=== PATIENT | male | born 2000 | race Caucasian/White ===

== ENCOUNTER 2022-07-04 09:26 | Outpatient (CLI) | payer BC | END 2022-07-04 09:27 | disposition home or self-care (01) | LOC: CSHWCC 09:26 | PROVIDERS: ATTEND Nurse Practitioner Family | DX: T81.89XD Other complications of procedures, not elsewhere classified, subsequent encounter (principal) | CPT/HCPCS: 11042; 11045; 99203; G0463 ==

== ENCOUNTER 2022-07-10 08:35 | Outpatient (CLI) | payer BC | END 2022-07-10 08:36 | disposition home or self-care (01) | LOC: CSHWCC 08:35 | PROVIDERS: ATTEND Nurse Practitioner Family | DX: T81.89XD Other complications of procedures, not elsewhere classified, subsequent encounter (principal) | CPT/HCPCS: 11042; 97607 ==

== ENCOUNTER 2022-07-18 08:32 | Outpatient (CLI) | payer BC | END 2022-07-18 08:33 | disposition home or self-care (01) | LOC: CSHWCC 08:32 | PROVIDERS: ATTEND Nurse Practitioner Family | DX: T81.89XD Other complications of procedures, not elsewhere classified, subsequent encounter (principal) | CPT/HCPCS: 11042; 97607 ==

== ENCOUNTER 2022-07-24 08:47 | Outpatient (CLI) | payer BC | END 2022-07-24 08:48 | disposition home or self-care (01) | LOC: CSHWCC 08:47 | PROVIDERS: ATTEND Nurse Practitioner Family | DX: T81.89XD Other complications of procedures, not elsewhere classified, subsequent encounter (principal) | CPT/HCPCS: 11042; 97607 ==